=== PATIENT | female | born 1955 | race Caucasian/White ===

== ENCOUNTER 2019-08-02 08:04 | Day surgery (SDC) | payer OTHER, SELFPAY ==
[2019-07-29 09:46] VITALS: BMI 25.0
[2019-08-02] VITALS (17 sets, daily range): BP systolic 126–149; BP diastolic 70–92; PULSE 57–82; RESP 12–19; TEMP 35.7–37.2; O2SAT 95–100; BMI 25.0
[2019-08-02] MEDS: LACTATED RINGERS 1,000 ML 42 ML IV ×2 (09:09→10:17)
--- NOTE | 2019-08-02 09:11 | PM.PREOP ---
Pre-operative Note Interval Note History & Physical reviewed/Exam performed by Physician: Yes Changes to H&P: No
--- NOTE | 2019-08-02 09:12 | PM.GYNHP.1 ---
History of Present Illness History of Present Illness Reason for admission: pelvic prolapse Narrative: Keri Sheehan is a 64 year old female admitted for anterior and posterior repair with sacrospinous ligament fixation for symptomatic partial uterovaginal prolapse. She was scheduled for an LAVH with anterior and posterior repair in January at [facility]. She had an EKG the night before her surgery but at the time of her surgery decision was made by her surgeon that he was uncomfortable with her EKG and canceled the surgery. He did talk to her cardiology group up in [place] later and was told she could proceed with surgery but the surgery was not rescheduled. She then saw Dr. Delgado on June 03 but was asked to see me for Dr. Thakkar medical leave. Patient states that for approximately 3 years ago when she had a Pap smear her primary care physician noted that she was beginning to have prolapse. Patient was asymptomatic at that time. Since that time she has had worsening prolapse. She denies any urinary incontinence. She does have some urinary urgency. She occasionally has a sensation that stool might get stuck in her rectum but is not a big issue. However the patient can feel her cervix when she wipes when urinating and this is quite discomforting to her. She and her have stopped having intercourse due to his concern that a cannot enter her appropriately. She has no vaginal bleeding. Patient had irregular heartbeat and after the 4th cardiac ablation her heartbeat is now regular. Patient was given options for surgery and decided to proceed with anterior and posterior repair with sacrospinous ligament fixation. [facility] Medical History (Updated 08/02/19 @ 09:18 by Fadumo Stock MD) Atrial fibrillation (Chronic ~2012) Cardiac arrhythmia (Chronic ~2004) Cataracts, bilateral (Chronic ~2015) Chicken pox (Resolved) Essential tremor (Chronic ~2015) Foot pain (Chronic ~2017) GERD (gastroesophageal reflux disease) (Chronic ~2005) Hypertension (Chronic ~2005) Mitral valve prolapse (Acute) Mumps (Resolved) Neurologic disorder (Acute) Prolapsed uterus (Chronic ~2015) Surgical History (Updated 07/29/19 @ 09:52 by Bette Luis RN) Anesthesia (Resolved) History of Achilles tendon repair (Resolved ~1995) History of cardiac radiofrequency ablation (Resolved) History of gynecologic surgery (Resolved ~1984) Hx of tonsillectomy (Acute) Family History (Updated 04/25/19 @ 15:47 by Eliane Romo) Father Parkinson's disease Mother History of heart disease Grandmother Stroke Social History household members: spouse Smoking Status: Never smoker alcohol intake: current Meds Home Medications and Allergies Home Medications Medication Instructions Recorded Confirmed Type famotidine 20 mg tablet 20 mg PO DAILY 06/03/19 07/29/19 History gabapentin 300 mg capsule 300 mg PO BID 06/03/19 07/29/19 History propranolol 60 mg capsule,24 60 mg PO BID cap 06/03/19 07/29/19 History hr,extended release rosuvastatin 10 mg tablet 10 mg PO DAILY 06/03/19 07/29/19 History conjugated estrogens 0.625 mg/gram 0.625 mg VAG 2XW gram 06/23/19 06/23/19 History vaginal cream triamterene-hydrochlorothiazid 37.5 mg DAILY 08/02/19 08/02/19 History Allergies Allergy/AdvReac Type Severity Reaction Status Date / Time atorvastatin [From Lipitor] Allergy Severe Reaction Verified 07/29/19 09:50 not listed Penicillins Allergy Severe rash Verified 07/29/19 09:50 prednisone Allergy Severe Reaction Verified 07/29/19 09:50 not listed simvastatin [From Zocor] Allergy Severe Reaction Verified 07/29/19 09:50 not listed Sulfa (Sulfonamide Allergy Severe rash Verified 07/29/19 09:50 Antibiotics) hydrochlorothiazide Allergy Possible Verified 07/29/19 09:50 rash on legs Review of Systems Review of Systems Narrative: Patient denies headaches, chest pains or shortness of breath. No fevers. No cough. Patient denies UTI symptoms. ROS: Yes All systems reviewed with the patient and are negative except as otherwise documented Exam Vital Signs (past 8 hours): - 08/02/19 08:44 Temperature 98.9 F Pulse Rate 63 Respiratory Rate 16 Blood Pressure 149/92 H Pulse Oximetry 100 Oxygen Delivery Method Room Air Narrative Exam Narrative: On physical exam the patient's HEENT exam within normal limits. Lungs are clear to auscultation and percussion. Heart is regular rate and rhythm no S3-S4 or murmurs. No thyromegaly. Abdomen is soft, nontender with no palpable organomegaly. Normal external genitalia. With Valsalva the cervix does come out of the hymen. The uterus is not enlarged and nontender. There are no adnexal masses or tenderness. There is a mild cystocele. Urethra is well-supported. Rectal exam reveals a minimal rectocele. With handouts and discussion discussed various options of treatment for prolapse. After discussion we decided that we will proceed with anterior and posterior repair with sacrospinous ligament fixation sparing her uterus. Patient does not have any indication for hysterectomy or oophorectomy. Discussed 30% failure rate after any prolapse surgery. Discuss there's a small risk that she would develop urinary incontinence after prolapse surgery. Risk of infection at 10% after surgery despite IV antibiotics at the time of procedure. Risk of damage to bowel, bladder, ureters that right require additional surgery. Reaction to medication or anesthesia. Risk of needing to return to surgery postop if she has significant pain suggesting nerve impingement from her sacrospinous ligament fixation. Possible need for blood transfusion and patient is agreeable to have a transfusion. Assessment & Plan Assessment and plan (1) Preoperative exam for gynecologic surgery: Current visit: Yes Status: Acute (2) Uterovaginal prolapse, incomplete: Current visit: No Status: Acute Assessment & Plan narrative: Patient with symptomatic uterovaginal prolapse requesting anterior and posterior repair with sacrospinous ligament fixation. Time Spent With Patient Time with patient: less than 15 minutes
[2019-08-02] MEDS: CEFAZOLIN 2 GM/100 ML FROZ.PIGGY IV (09:35)
--- NOTE | 2019-08-02 09:55 | SUR.OPER ---
Lithotomy on padded OR bed, head on pillow, arms secured on padded arm boards at <90 degrees abduction. Legs secured in padded yellow fins stirrups.
[2019-08-02] MEDS: BUPIVACAINE 0.5% W/ EPI (PF) 30 ML VIAL INJ (09:59)
[2019-08-02] MEDS: SODIUM CHLORIDE 0.9% 50 ML INJ (10:00)
--- NOTE | 2019-08-02 10:37 | SUR.OPER ---
2 way latex bridges placed at [address] Stock.
--- NOTE | 2019-08-02 10:58 | SUR.PHASEI ---
Dr. Priest notified patient c/o lung pain, VS stable. MD at bedside. No new orders.
--- NOTE | 2019-08-02 11:00 | PM.OP.1 ---
Operative Date/Time/Diagnoses Date of procedure: 08/02/19 Time of procedure: 11:00 Pre-op diagnosis: Symptomatic uterine prolapse Post-op diagnosis: same Procedure & Clinicians Procedure: Anterior and posterior repair with sacrospinous ligament fixation and perineoplasty Same procedure as scheduled: Yes Indications: Symptomatic uterine prolapse Surgeon: Fadumo Stock Click Yes if Unassisted: Yes Anesthesia Type: General Operative Notes Findings: Cervix prolapses out of the hymen with minimal cystocele and rectocele Closure Type: primary Specimen(s): none sent Applied: catheter (Hilton) and other (Vaginal packing) Estimated Blood Loss (mL): 50 Blood products transfused: none Procedure in detail: Patient was brought to the operating room where she was placed in yellowfin stirrups and prepped and draped in the usual sterile fashion. A 20 point check system was reviewed prior to the beginning of the case. Pulsatile stockings were in place and functional throughout the case. Warming was in place. 2 g of Ancef were in prior to beginning of the case. The bladder was drained with an in-and out catheter. A dilute solution of 1% lidocaine with epinephrine was injected over the cystocele. An incision was made over the cystocele and the incision dissected laterally. A pursestring suture was used to decrease the caliber of the cystocele with 2-0 Vicryl suture. Plicating sutures of 0 Vicryl suture were made over the cystocele. A small amount of the vaginal excessive tissue was removed with scissors. The incision was closed with 2-0 Vicryl suture. Next a wedge shaped tissue was taken out of the posterior vaginal opening. The area over the rectocele was injected with a dilute solution of 1% lidocaine with epinephrine. An incision was made over the rectocele with the scalpel. The dissection was undertaken laterally. Prolene suture with the Capio passer was placed through the uterosacral ligament on the right side and sutured to the underside of the cervix. The same procedure was performed on the left side. 0 Vicryl suture was used to plicate over the rectocele. A finger was placed in the rectum to be sure there were no sutures placed through the rectal mucosa. The uterosacral sutures were tightened down and the vaginal incision was closed with 2-0 Vicryl suture. The perineal body was built up with interrupted 0 Vicryl sutures. The skin was closed with the 2-0 Vicryl suture. Vaginal packing was placed in the vagina and a Hilton placed. Counts of instruments and sponges were correct. The patient went to recovery room in good condition. Complications: none Post-operative Condition: stable Disposition: observation Plan for aftercare: Remove packing and Hilton in 6 hours. If patient is doing well she prefers to go to her hotel room rather than staying in the hospital overnight.
--- NOTE | 2019-08-02 11:35 | SUR.PHASEI ---
Patient transferred to the floor with belongings bag and glasses. IV saline locked. Marva-pad CDI. VS stable. Report given to Paula.
[2019-08-02] MEDS: LACTATED RINGERS 1,000 ML 100 ML IV ×2 (13:19→22:45)
[2019-08-02] MEDS: CODEINE/ACETAMINOPHEN 30/300 TABLET 2 TAB PO (13:27)
[2019-08-02] MEDS: ONDANSETRON 4 MG/2 ML INJ IV (19:03)
[2019-08-02] MEDS: PROPRANOLOL ER 60 MG CAPSULE PO (20:41)
[2019-08-02] MEDS: GABAPENTIN 300 MG CAPSULE PO (20:41)
[2019-08-02] MEDS: DOCUSATE 250 MG CAPSULE PO (20:41)
[2019-08-02] MEDS: CALCIUM CARBONATE 500 MG TAB 1000 MG PO (22:33)
[2019-08-02] MEDS: SIMETHICONE 80 MG TABLET PO (22:34)
[2019-08-02] MEDS: KETOROLAC 30 MG/ML VIAL IV (22:48)
--- NOTE | 2019-08-02 23:01 | PC.NURSE ---
Pt slightly pre hypertensive at 143/70, other VSS. Pt developed distended abdomen was given Mylicon 80 mg po and TUMS 1000 mg and encouraged to walk. +BT in all quadrants. Not passing gas, but burping. Able to void 300 mLs orange colored urine.
[2019-08-03 05:28] VITALS: BP 123/64; PULSE 60; RESP 16; TEMP 36.7; O2SAT 99
--- NOTE | 2019-08-03 05:38 | PC.NURSE ---
Patient had minimal spotting on sophia pad, denies pain, denies nausea. VSS, lung sounds clear. Patient was educated about the use of call light, it is within reach, bed is low and locked, patient asked for a break from SCD's, patient was educated about the purpose of SCD's. Patient is stable on feet, able to transfer independently to bathroom.
[2019-08-03 07:25] VITALS: BP 135/73; PULSE 64; RESP 16; TEMP 36.1; O2SAT 100
[2019-08-03 08:03] VITALS: O2SAT 100
--- NOTE | 2019-08-03 09:28 | CM.DANOTE ---
DCP Asssessment: (EMR Reviewed): Patient is a pleasant 64 yo female who had a vaginal surgery performed by Dr. Stock. Pt's PCP is Dr. Philip. Met with patient at bedside and introduced self and role. Patient lives at home with her spouse and is independent with all ADLs. Patient reports she drives herself. At home patient has a cane she uses occasionally. Pt reports plan after discharge is to return home with her and that she feels confident and comfortable with this plan. I: Prime P: Discharge home with (Tristin). Patient reports knowing to schedule F/U appointment with Dr. Stock for 2 weeks but appointment is not yet scheduled. CM will continue to be available should D/C needs arrive. SN Reyna Herrera RN Discharge Planning/Care Management CM Discharge Assessment Start: 08/03/19 09:26 Freq: Status: Active Protocol: Document 08/03/19 09:26 HS (Rec: 08/03/19 09:28 [id number]) Discharge Planning Assessment Assigned Flame Cutting Machine Operator Helper Reyna Mirza RN/SN Sharon DPOA/Assigned Designee Name Tristin Sheehan () Contact Information [phone] Advance Directives? No History Provided By Patient,Medical Record Has Patient been admitted in last 30 No days? Prior Living Arrangements House Household Members spouse Type of transporation used prior to Drives own vehicle admit Independent with ADL's Yes Is patient alert and oriented? Yes Caregiver for Another No DME Already Rented / Owned Cane Patient/Family Preference OP PT Therapy Barriers to Discharge No Discharge Plan Home Transportation Arrangement Spouse- private vehicle Referrals Initiated None needed Whiteboard Updated in Patient Room with Yes name and ext. # of Flame Cutting Machine Operator Helper Review Status In Process Next Review Type Continued Stay Review Pre-Anesthesia Assessment Start: 07/29/19 09:46 Freq: Status: Active Protocol: Document 07/29/19 09:46 CAB (Rec: 07/29/19 10:00 CAB [id number]) Pre-Anesthesia Assessment Patient Information Reviewed Via Chart Review Diagnostic Results EKG Comment Outside EKG scanned to record Primary Care Provider Leoncio Shaw Medical Clearance Received Yes Specialist Seen Cargo Operations Agent,Ship Washer Comment PCP pre-op, clearance scanned to record Primary Language Armenian Height 182.88 cm Weight 83.915 kg Body Mass Index (BMI) 25.0 Hx Anesthesia Reactions Yes: PONV alcohol intake current alcohol intake frequency 0-2 drinks per day Smoking Status Never smoker Substance Use Type marijuana Mental Status Oriented to own ability Currently Taking a Beta Jasvir Yes: Propranolol Anti-Coagulant Therapy No: None listed, hx afib w/ ablations x 4, mult cardioversions per PCP note Has a Cargo Operations Agent Yes Cardiac Testing Yes: Recent EKG, NSR, incomp RBBB Hx Pacemaker/ICD No Pacemaker Rep Required? No Urinary Catheter Present No Hx Urinary Self Catheterization No Diabetes No Patient No Lactating No Marital Status Lives With spouse Patient Discharge Plan Description Return Home
[2019-08-03] MEDS: GABAPENTIN 300 MG CAPSULE PO (10:41)
[2019-08-03] MEDS: SIMETHICONE 80 MG TABLET PO (10:41)
[2019-08-03] MEDS: DOCUSATE 250 MG CAPSULE PO (10:41)
[2019-08-03] MEDS: PROPRANOLOL ER 60 MG CAPSULE PO (10:42)
--- NOTE | 2019-08-03 11:34 | PC.NURSE ---
Discharge: Alert and oriented X3. Reports voiding w/ mild burning sensation at beginning of flow, but no complaints otherwise. Denies post-void urgency. Urine clear yellow. Scant spotting on sophia-pad. BT+, flatus+. Medicated with Simethicone per patient request to help manage occasional gas pains. No pain meds required this morning. Lungs CTA, HRR. Tolerating food without N/V. [place] ready to go home, so was discharged per order from yesterday. IV dc'd intact. Reviewed all d/c instructions thoroughly with patient and . Reviewed s/sx that would warrant a call to MD or return to ED. Verbalized understanding of d/c instructions and stated no further questions. All personal belongings sent with patient, wheeled out to private vehicle by nursing staff.
== END 2019-08-03 11:43 | disposition home or self-care (01) ==
LOC: OR 08:13 → AC 11:32
PROVIDERS: Family Provider Physician Assistant Medical; PCP Physician Assistant Medical; Referring Provider Physician Assistant Medical; Visit Provider Specialist
PROC: (CPT 57260; principal; 2019-08-02 09:30)
DX: N81.3 Complete uterovaginal prolapse (principal)
CPT/HCPCS: 57260; J0690; J1100; J1885; J2405; J2704; J3010

== ENCOUNTER 2020-07-28 10:14 | Emergency (ER) | payer OTHER, SELFPAY ==
[2019-08-02 11:35] VITALS: BMI 25.0
[2020-07-28 10:15] VITALS: BP 176/90; PULSE 89; RESP 14; TEMP 36.9; O2SAT 98; BMI 24.4
[2020-07-28] MEDS: OXYMETAZOLINE NASAL SPRAY 15 ML 2 SPRAYS NASAL (10:29)
--- NOTE | 2020-07-28 10:33 | ED_ITS ---
HPI - General Adult General Chief complaint: Nasal Problem Stated complaint: Bloody nose Time Seen by Provider: 07/28/20 10:24 Source: patient Mode of arrival: Ambulatory Limitations: no limitations History of Present Illness HPI narrative: Patient is a 65-year-old female. On Xarelto for paroxysmal atrial fibrillation who is here for a nosebleed. She states that approximately 2 hours prior to arrival here in the emergency department she bent over and noticed that her nose was bleeding. She denies any trauma. Has never had anything like this in the past. Attempted to provide pressure however it continued to bleed and seem to be going down the back of her throat so she came to the emergency department for evaluation. A nose clamp was placed in triage. Related Data Home Medications Medication Instructions Recorded Confirmed gabapentin 300 mg capsule 300 mg PO BID 06/03/19 01/12/20 rosuvastatin 10 mg tablet 10 mg PO DAILY 06/03/19 01/12/20 metoprolol succinate 50 mg 50 mg PO DAILY 01/12/20 01/12/20 tablet,extended release 24 hr propranolol 60 mg capsule,24 60 mg PO ONCE cap 01/12/20 01/12/20 hr,extended release rivaroxaban 20 mg tablet 20 mg PO DAILY 01/12/20 01/12/20 Allergies Allergy/AdvReac Type Severity Reaction Status Date / Time atorvastatin [From Lipitor] Allergy Severe Reaction Verified 01/12/20 10:16 not listed Penicillins Allergy Severe rash Verified 07/28/20 10:23 prednisone Allergy Severe Reaction Verified 01/12/20 10:16 not listed simvastatin [From Zocor] Allergy Severe Reaction Verified 01/12/20 10:16 not listed Sulfa (Sulfonamide Allergy Severe rash Verified 07/28/20 10:23 Antibiotics) hydrochlorothiazide Allergy Possible Verified 01/12/20 10:16 rash on legs Review of Systems Constitutional Constitutional: Denies chills, Denies fever(s) and Denies headache(s) ENT Ears, Nose, Mouth, and Throat: Denies headache(s) Comments: Nosebleed Cardiovascular Cardiovascular: Denies chest pain and Denies dyspnea Respiratory Respiratory: Denies dyspnea Integumentary/Breasts Skin/Breast: Denies rash Neurologic Neurologic: Denies headache(s) Hematologic/Lymphatic On Anticoagulants: Yes Allergic/Immunologic Allergic/Immunologic: Denies urticaria Patient History Medical History Atrial fibrillation (~2012) Cardiac arrhythmia (~2004) Cataracts, bilateral (~2015) Chicken pox Essential tremor (~2015) Foot pain (~2016) GERD (gastroesophageal reflux disease) (~2005) Hypertension (~2005) Mitral valve prolapse Mumps Neurologic disorder Surgical History (Updated 07/29/19 @ 09:52 by Bette Luis RN) Anesthesia History of Achilles tendon repair (~1995) History of cardiac radiofrequency ablation History of gynecologic surgery (~1984) Hx of tonsillectomy Family History (Updated 04/25/19 @ 15:47 by Eliane Romo) Father Parkinson's disease Mother History of heart disease Grandmother Stroke Social History household members: spouse Smoking Status: Never smoker alcohol intake: current Smoking Status: Never smoker alcohol intake frequency: 0-2 drinks per day Substance Use Type: marijuana Exam Initial Vital Signs Initial Vital Signs: Vital Signs Temperature 98.4 F 07/28/20 10:15 Pulse Rate 89 07/28/20 10:15 Respiratory Rate 14 07/28/20 10:15 Blood Pressure 176/90 H 07/28/20 10:15 Pulse Oximetry 98 07/28/20 10:15 Const General: cooperative and comfortable Limitations: mental status not altered HENMT Nose: nares normal, septum normal and No nasal discharge Mouth: oral mucosae normal Resp Effort & Inspection: normal respiratory effort Skin Lesions: no lesions Rashes: no rashes Neuro General: patient alert and patient awake Cognition: normal cognition Speech: speech normal Extrem General: capillary refill normal Psych Appearance: grossly normal and well kempt Course Orders Ordered: Discontinued Medications Oxymetazoline HCl (Oxymetazoline Nasal [place] 15 Ml) 2 sprays NASAL NOW ONE Stop: 07/28/20 10:25 Last Admin: 07/28/20 10:29 Dose: 2 sprays Documented by: JEN Vital Signs Vital signs: Vital Signs - 8 hr 07/28/20 10:15 07/28/20 12:00 Temperature 98.4 F Pulse Rate 89 60 Respiratory Rate 14 16 Blood Pressure 176/90 H 142/72 H Pulse Oximetry 98 99 Medical Decision Making MDM Narrative Medical decision making narrative: Patient had nasal clamp and placed upon my in itial evaluation without any bleeding. This was removed after 15-20 minutes and she was observed for another 15-20 minutes without any continued bleeding. It does appear to be a small overall area on the right nasal septum that appears to be friable without any hematomas. During her entire stay here in the ER she had no continued bleeding. Will send home with a nasal clamp and also Afrin. She was given instructions on its use and return precautions and follow-up instructions. She expressed understanding and agreement. Discharge Plan Departure Patient Disposition: Home Clinical Impression: Epistaxis Instructions: DI for Nosebleed Activity Restrictions/Additional Instructions: Current recommendations are is that you continue with your Xarelto. If the bleeding happens again this evening perform the maneuvers with the clamp in the Afrin like we discussed. Return to the emergency department for any new or worsening symptoms Prescriptions: No Action gabapentin 300 mg capsule 300 mg PO BID RF: 0 rosuvastatin 10 mg tablet 10 mg PO DAILY RF: 0 propranolol 60 mg capsule,extended release 24 hr 60 mg PO ONCE RF: 0 metoprolol succinate 50 mg tablet extended release 24 hr 50 mg PO DAILY RF: 0 Xarelto 20 mg tablet 20 mg PO DAILY RF: 0 Referrals: Susan Philip PA-C [Primary Care Provider] -
--- NOTE | 2020-07-28 11:57 | PC.NURSE ---
Bleeding has stopped.
[2020-07-28 12:00] VITALS: BP 142/72; PULSE 60; RESP 16; O2SAT 99
== END 2020-07-28 12:01 | disposition home or self-care (01) ==
PROVIDERS: Emergency Provider Emergency Medicine; Family Provider Physician Assistant Medical; PCP Physician Assistant Medical
DX: R04.0 Epistaxis (principal); I48.0 Paroxysmal atrial fibrillation; Z79.01 Long term (current) use of anticoagulants
CPT/HCPCS: 99281; A9270

== ENCOUNTER → 2024-05-07 11:41 | Outpatient (CLI) | payer MEDICARE, OTHER, SELFPAY ==
[2019-08-02 11:35] VITALS: BMI 25.0
--- NOTE | 2024-05-07 | DI.MRI.S_ITS ---
PROCEDURE: MR SHOULDER RT WO CON INDICATIONS: JOINT PAIN IN RIGHT SHOULDER TECHNIQUE: Noncontrast oblique coronal T2 fast spin echo with fat saturation, oblique sagittal T1 spin echo and T2 fast spin echo with fat saturation, axial T1 spin echo and T2 fast spin echo with fat saturation through the shoulder. COMPARISON: None. FINDINGS: Image quality: Excellent. Rotator cuff: Full-thickness rupture involving anterior to mid fibers of distal supraspinatus at its insertion on the humeral head is seen with up to 1.3 cm medial retraction of torn tendon fibers and a fluid-filled gap measures up to 9 mm in AP dimension. Moderate grade articular surface partial-thickness tear involving posterior fibers of distal supraspinatus and distal infraspinatus extending to musculotendinous junction. Low to moderate grade intrasubstance partial-thickness tear involving superior to mid fibers of distal subscapularis. Sagittal images demonstrate moderate supraspinatus muscle atrophy. Bones and bursae: No bone marrow contusions or fractures. Moderate acromioclavicular joint osteoarthritic changes are seen. [id number] glenohumeral joint osteoarthritic changes also noted. Type 1 acromion without an os acromiale. Moderate to large amount of joint effusion and subacromial subdeltoid bursal fluid, no loose bodies. Capsule and soft tissues: There is fraying and signal abnormality involving superior anterior glenoid labrum suggestive of superior anterior labral tear. The long head of the biceps tendon appears thickened intra-articularly. IMPRESSION: 1. Full-thickness rupture involving anterior to mid fibers of distal supraspinatus at its insertion on the humeral head with up to 1.3 cm medial retraction of torn tendon fibers and a fluid-filled gap measures 9 mm in AP dimension. Moderate grade articular surface partial-thickness tear involving posterior fibers of distal supraspinatus and infraspinatus. Low to moderate grade intrasubstance partial-thickness tear involving distal subscapularis. Moderate supraspinatus muscle atrophy. 2. Moderate acromioclavicular joint osteoarthritis. Jrej-ge-vwwydent glenohumeral joint osteoarthritis. Moderate to large joint effusion and subacromial subdeltoid bursal fluid. No acute fracture or dislocation. No gross loose bodies. 3. Suggestion of superior anterior glenoid labral tear. 4. Proximal long head of biceps tendinosis. Dictated by: Lewis Meyer M.D. on 05/07/2024 at 15:09 Approved by: Lewis Meyer M.D. on 05/07/2024 at 15:44
== END ==
PROVIDERS: Family Provider Physician Assistant Medical; PCP Physician Assistant Medical; Referring Provider Orthopaedic Surgery; Visit Provider Orthopaedic Surgery
DX: M75.121 Complete rotator cuff tear or rupture of right shoulder, not specified as traumatic (principal); M25.511 Pain in right shoulder; M19.011 Primary osteoarthritis, right shoulder; M25.411 Effusion, right shoulder
CPT/HCPCS: 73221